=== PATIENT | female | born 1940 ===

== ENCOUNTER 2017-08-07 08:10 | Day surgery (SDC) | payer OTHER ==
[2017-08-07 08:37] VITALS: BMI 15.5
[2017-08-07] MEDS ORDERED: Simethicone 40 mg/0.6 ml Liquid (30 ml) ONE (09:53)
[2017-08-07] MEDS ORDERED: Lactated Ringer's 1,000 ML IV ONE (10:00)
[2017-08-07] MEDS ORDERED: Propofol 10 mg/ml Inj (20 ML) ONE (10:02)
[2017-08-07 14:27] VITALS: TEMP 97
[2017-08-07 14:29] VITALS: RESP 18
[2017-08-07 14:35] VITALS: BP 129/58; PULSE 58; O2SAT 100
== END 2017-08-07 11:50 | disposition home or self-care (01) ==
LOC: C.ENDO 08:10
PROVIDERS: ATTEND Internal Medicine Gastroenterology
DX: K29.50 Unspecified chronic gastritis without bleeding (principal); B96.81 Helicobacter pylori [H. pylori] as the cause of diseases classified elsewhere; K63.89 Other specified diseases of intestine; K64.8 Other hemorrhoids; K57.90 Diverticulosis of intestine, part unspecified, without perforation or abscess without bleeding
CPT/HCPCS: 43239; 45380; 88305; 88312; 88313; 88342; J2001; J2704; J7120